=== PATIENT | male | born 1985 | race Caucasian/White ===

== ENCOUNTER 2021-10-31 11:52 | Emergency (ER) | payer MEDICAID ==
[~2021-10-31] VITALS: Ht 177.8 cm; Wt 90.9 kg
[2021-10-31] MEDS ORDERED: LORazepam 1 MG TABLET PO ONE (13:00)
[2021-10-31] MEDS ORDERED: HYDR-4527 PO (13:23)
[2021-10-31 13:25] VITALS: BP 117/64
== END 2021-10-31 13:41 | disposition home or self-care (01) ==
LOC: EMS 11:55
DX: F41.9 Anxiety disorder, unspecified (principal); F15.90 Other stimulant use, unspecified, uncomplicated; F17.210 Nicotine dependence, cigarettes, uncomplicated; Z91.013 Allergy to seafood
CPT/HCPCS: 99283